=== PATIENT | female | born 1995 | race Caucasian/White ===

== ENCOUNTER 2019-01-23 21:22 | Emergency (ER) | payer OTHER ==
[~2019-01-23] VITALS: Ht 160 cm; Wt 73.5 kg
[2019-01-23] MEDS ORDERED: PRED20TA PO (21:53)
[2019-01-23] MEDS ORDERED: diphenhydrAMINE 25mg capsule PO ONE (21:55)
[2019-01-23] MEDS ORDERED: dexamethasone 4mg/ml inj IM ONE (21:55)
[2019-01-23 22:21] VITALS: BP 132/80
== END 2019-01-23 22:22 | disposition home or self-care (01) ==
LOC: ER 21:22
DX: L50.9 Urticaria, unspecified (principal); Z98.890 Other specified postprocedural states; Z88.0 Allergy status to penicillin; Z79.899 Other long term (current) drug therapy
CPT/HCPCS: 96372; 99283; J1100; Q0163